=== PATIENT | male | born 1965 | race Caucasian/White ===

== ENCOUNTER 2022-06-20 13:29 | Outpatient (CLI) | payer OTHER | END 2022-06-20 13:30 | disposition home or self-care (01) | LOC: CSHWCC 13:29 | PROVIDERS: ATTEND Nurse Practitioner Family | DX: S91.102D Unspecified open wound of left great toe without damage to nail, subsequent encounter (principal) | CPT/HCPCS: 11042; 99203; G0463 ==

== ENCOUNTER 2022-07-04 14:11 | Outpatient (CLI) | payer BC | END 2022-07-04 14:12 | disposition home or self-care (01) | LOC: CSHWCC 14:11 | PROVIDERS: ATTEND Nurse Practitioner Family | DX: S91.309D Unspecified open wound, unspecified foot, subsequent encounter (principal) | CPT/HCPCS: 99213; G0463 ==

== ENCOUNTER 2022-07-20 12:47 | Outpatient (CLI) | payer BC | END 2022-07-20 12:48 | disposition home or self-care (01) | LOC: CSHWCC 12:47 | PROVIDERS: ATTEND Nurse Practitioner Family | DX: S91.202D Unspecified open wound of left great toe with damage to nail, subsequent encounter (principal); S91.302D Unspecified open wound, left foot, subsequent encounter | CPT/HCPCS: 29445 ==

== ENCOUNTER 2022-07-31 12:43 | Outpatient (CLI) | payer BC, OTHER | END 2022-07-31 12:44 | disposition home or self-care (01) | LOC: CSHWCC 12:43 | PROVIDERS: ATTEND Nurse Practitioner Family | DX: S91.302D Unspecified open wound, left foot, subsequent encounter (principal); S81.802D Unspecified open wound, left lower leg, subsequent encounter | CPT/HCPCS: 29445 ==

== ENCOUNTER 2022-08-09 10:41 | Outpatient (CLI) | payer BC, OTHER | END 2022-08-09 10:42 | disposition home or self-care (01) | LOC: CSHWCC 10:41 | PROVIDERS: ATTEND Nurse Practitioner Family | DX: S81.802D Unspecified open wound, left lower leg, subsequent encounter (principal); S91.309D Unspecified open wound, unspecified foot, subsequent encounter ==

== ENCOUNTER 2022-08-18 09:35 | Outpatient (CLI) | payer BC | END 2022-08-18 09:36 | disposition home or self-care (01) | LOC: CSHWCC 09:35 | PROVIDERS: ATTEND Nurse Practitioner Family | DX: S91.309D Unspecified open wound, unspecified foot, subsequent encounter (principal) | CPT/HCPCS: 99212; G0463 ==

== ENCOUNTER 2022-10-23 14:16 | Outpatient (CLI) | payer BC | END 2022-10-23 14:17 | disposition home or self-care (01) | LOC: CSHWCC 14:16 | PROVIDERS: ATTEND Nurse Practitioner Family | DX: S91.309D Unspecified open wound, unspecified foot, subsequent encounter (principal); L97.522 Non-pressure chronic ulcer of other part of left foot with fat layer exposed ==

== ENCOUNTER 2022-10-30 14:27 | Outpatient (CLI) | payer BC | END 2022-10-30 14:28 | disposition home or self-care (01) | LOC: CSHWCC 14:27 | PROVIDERS: ATTEND Nurse Practitioner Family | DX: S91.309D Unspecified open wound, unspecified foot, subsequent encounter (principal) ==

== ENCOUNTER 2022-11-01 10:19 | Outpatient (CLI) | payer BC | END 2022-11-01 10:20 | disposition home or self-care (01) | LOC: CSHWCC 10:19 | PROVIDERS: ATTEND Nurse Practitioner Family | DX: S91.309D Unspecified open wound, unspecified foot, subsequent encounter (principal); L97.522 Non-pressure chronic ulcer of other part of left foot with fat layer exposed | CPT/HCPCS: 29445 ==